=== PATIENT | female | born 1985 | race American Indian/Alaskan Native ===

== ENCOUNTER 2019-11-22 14:27 | Emergency (ER) | payer SELFPAY ==
--- NOTE | 2019-11-22 14:55 | Event Note ---
ED Screening Note Date of service: 11/22/19 Time: 14:54 ED Screening Note: Pt complains of cough x 7 days states initially had a fever, now resolved +smoker This initial assessment/diagnostic orders/clinical plan/treatment(s) is/are subject to change based on patients health status, clinical progression and re- assessment by fellow clinical providers in the ED. Further treatment and workup at subsequent clinical providers discretion. Patient/guardian urged not to elope from the ED as their condition may be serious if not clinically assessed and managed. Initial orders include: ACC CXR
[2019-11-22 14:56] VITALS: BP 107/66
--- NOTE | 2019-11-22 16:10 | XRay Report ---
CHEST 1 VIEW INDICATION: MAIN: cough for a week. COMPARISON: None. FINDINGS: Support devices: None. Heart: Within normal limits. Lungs/Pleura: No acute air space or interstitial disease. Additional findings: None. IMPRESSION: No acute abnormality. Signer Name: Ugo Thomas MD Signed: 11/22/2019 4:06 PM Workstation Name: [id number]
== END 2019-11-22 19:31 | disposition left against medical advice (07) ==
LOC: ED 14:27
DX: R07.89 Other chest pain (principal); Z53.21 Procedure and treatment not carried out due to patient leaving prior to being seen by health care provider
CPT/HCPCS: 71046